=== PATIENT | female | born 1965 | race Asian ===

== ENCOUNTER 2020-03-28 22:39 | Inpatient (IN) | payer MEDICARE, MEDICAID ==
[~2020-03-28] VITALS: Ht 165.1 cm; Wt 60.6 kg
--- NOTE | 2020-03-28 22:49 | Emergency Room Report ---
History of Present Illness General Source: Patient, EMS Present Illness HPI Patient brought by EMS after she experiences left sided rib, chest pain associated with nausea. She denies any vomiting. Paramedics report she had a normal EKG in the field. She said the pain started this morning. It is severe indigestion. She was treated with Zofran. The patient stated that Zofran made her drowsy. Usually Gaviscon helps but it did not help this time. Her doctor told her that she was COVID-19 positive even though she tested 3 weeks ago negative. Since he takes Pepcid daily. She has been drinking a lot of fluids. This includes water. She has felt dizzy and unsteady on her feet. The left- sided chest pain is rated 7/10. She points to the lateral side of her chest wall. She states that somewhat positional and does not radiate. This started today. The patient takes anticonvulsants. These also make her drowsy. She does not remember the last time she had a seizure. No fevers, chills, sore throat, palpitations, diarrhea, dysuria, abdominal pain , shortness of breath, joint pain, rashes, visual changes, headache. Patient also suffers from schizophrenia. Allergies: Coded Allergies: PENICILLINS (Verified Allergy, Intermediate, 03/29/20) CHEST TIGHTNESS Patient History Past Medical History: see triage record, seizures Social History: Denies: smoking, alcohol use, drug use Social History Narrative drove herself here Reviewed Nursing Documentation: PMH: Agreed; PSxH: Agreed Review of Systems All Other Systems: negative except mentioned in HPI Physical Exam Vital Signs Date Time Temp Pulse Resp B/P (MAP) Pulse Ox O2 Delivery O2 Flow Rate FiO2 03/28/20 23:36 97.9 59 16 139/64 (89) 97 Room Air Sp02 EP Interpretation: reviewed, normal General Appearance: well appearing, no apparent distress, GCS 15 Head: normocephalic Eyes: bilateral eye normal inspection, bilateral eye PERRL, bilateral eye EOMI ENT: normal pharynx, moist mucus membranes Neck: supple Respiratory: lungs clear, normal breath sounds Cardiovascular #1: regular rate, rhythm Cardiovascular #2: 2+ radial (R) Gastrointestinal: normal inspection, normal bowel sounds, non tender, no mass, non-distended Musculoskeletal: back normal, normal range of motion, gait/station normal Neurologic: alert, motor strength/tone normal, 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 Differential includes acute myocardial infarction, costochondritis, viral syndrome, COVID-19 , gastritis, reflux amongst others. Patient evaluated with EKG, chest x-ray and labs. He did treat patient treated with IV hydration and Zofran along with another dose of Pepcid. EKG no injury, normal. Chest x-ray normal. Labs with low sodium. COVID-19 test negative. Patient refused Zofran as she states this makes her drowsy. Discussed results with patient and need for IV hydration. She is reluctant but finally agreed to continue therapy. The chest pain is improved. In addition the indigestion is somewhat improved but she still feels nauseated. As I told her she needed admission she agreed to take Zofran IV. Improved with IV hydration and zofran. Urine sodium is 24 which excludes excessive water intake. However, it does not give a definitive diagnosis. Observation indicated as patient with symptomatic hyponatremia and persistent nausea. Laboratory Tests Test 03/28/20 23:14 03/29/20 03:50 White Blood Count 4.3 K/UL (4.8-10.8) L Red Blood Count 3.88 M/UL (4.20-5.40) L Hemoglobin 12.1 G/DL (12.0-16.0) Hematocrit 34.2 % (37.0-47.0) L Mean Corpuscular Volume 88 FL (80-99) Mean Corpuscular Hemoglobin 31.3 PG (27.0-31.0) H Mean Corpuscular Hemoglobin Concent 35.5 G/DL (32.0-36.0) Red Cell Distribution Width 10.2 % (11.6-14.8) L Platelet Count 228 K/UL (150-450) Mean Platelet Volume 5.0 FL (6.5-10.1) L Neutrophils (%) (Auto) 51.6 % (45.0-75.0) Lymphocytes (%) (Auto) 35.9 % (20.0-45.0) Monocytes (%) (Auto) 6.8 % (1.0-10.0) Eosinophils (%) (Auto) 4.3 % (0.0-3.0) H Basophils (%) (Auto) 1.3 % (0.0-2.0) Activated Partial Thromboplast Time 30 SEC (23-33) Urine Color Colorless Urine Appearance Clear Urine pH 7 (4.5-8.0) Urine Specific [place] 1.010 (1.005-1.035) Urine Protein Negative (NEGATIVE) Urine Glucose (UA) Negative (NEGATIVE) Urine Ketones Negative (NEGATIVE) Urine Blood Negative (NEGATIVE) Urine Nitrite Negative (NEGATIVE) Urine Bilirubin Negative (NEGATIVE) Urine Urobilinogen Normal MG/DL (0.0-1.0) Urine Leukocyte Esterase Negative (NEGATIVE) Sodium Level 123 MMOL/L (136-145) L Potassium Level 4.1 MMOL/L (3.5-5.1) Chloride Level 87 MMOL/L (98-107) L Carbon Dioxide Level 31 MMOL/L (21-32) Anion Gap 5 mmol/L (5-15) Blood Urea Nitrogen 5 mg/dL (7-18) L Creatinine 0.7 MG/DL (0.55-1.30) Estimated Glomerular Filtration Rate > 60 mL/min (>60) Glucose Level 96 MG/DL (74-106) Calcium Level 9.0 MG/DL (8.5-10.1) Ferritin 52 NG/ML (8-388) Total Bilirubin 0.5 MG/DL (0.2-1.0) Aspartate Amino Transferase (AST) 23 U/L (15-37) Alanine Aminotransferase (ALT) 31 U/L (12-78) Alkaline Phosphatase 84 U/L (46-116) Lactate Dehydrogenase 200 U/L (81-234) Troponin I 0.000 ng/mL (0.000-0.056) C-Reactive Protein, Quantitative < 0.4 mg/dL (0.00-0.90) Pro-B-Type Natriuretic Peptide 13 pg/mL (0-125) Total Protein 8.0 G/DL (6.4-8.2) Albumin 4.5 G/DL (3.4-5.0) Globulin 3.5 g/dL Albumin/Globulin Ratio 1.3 (1.0-2.7) Urine Random Sodium 24 mmol/L (20-110) Microbiology Date/Time Source Procedure Growth Status 03/28/20 23:14 Nasopharynx SARS-CoV-2 RdRp Gene Assay - Final Complete EKG Diagnostic Results Rate: bradycardiac Rhythm: NSR ST Segments: no acute changes Rhythm Strip Diag. Results EP Interpretation: yes Rhythm: no PVC's, no ectopy, other - Heart rate 55 Chest X-Ray Diagnostic Results Chest X-Ray Diagnostic Results : Chest X-Ray Ordered: Yes # of Views/Limited/Complete: 1 View Indication: Other EP Interpretation: Yes Interpretation: no consolidation, no effusion, no pneumothorax Impression: No acute disease Electronically Signed by: Electronically signed by Jose Lopez MD Last Vital Signs Date Time Temp Pulse Resp B/P (MAP) Pulse Ox O2 Delivery O2 Flow Rate FiO2 03/29/20 04:37 97.9 60 19 118/68 100 Room Air Status: improved Disposition: PLACE IN OBSERVATION Condition: Serious Jose Lopez MD Mar 28, 2020 22:49
[2020-03-28] MEDS ORDERED: Lidocaine 2% Visc 15ml soln ORAL ONE (23:00)
[2020-03-28] MEDS ORDERED: Mylanta II UD 30ml ORAL ONE (23:00)
--- NOTE | 2020-03-28 23:14 | Diagnostic Imaging Report ---
EXAM: XR Chest, 1 View CLINICAL HISTORY: CP TECHNIQUE: Frontal view of the chest. COMPARISON: No relevant prior studies available. FINDINGS: Lungs: Unremarkable. No consolidation. Pleural space: No pleural effusion. No pneumothorax. Heart: Unremarkable. No cardiomegaly. Bones/joints: Unremarkable. IMPRESSION: No acute cardiopulmonary abnormality.
[2020-03-28 23:46] VITALS: BP 139/64
[2020-03-28 23:53] LABS: APPEARANCE,URINE CLEAR; BILIRUBIN, URINE NEGATIVE (NEGATIVE); GLUCOSE, URINE (UA) NEGATIVE (NEGATIVE); KETONES,URINE NEGATIVE (NEGATIVE); LEUKOCYTE ESTERASE ,URINE NEGATIVE (NEGATIVE); NITRITE,URINE NEGATIVE (NEGATIVE); PH,URINE 7 (4.5-8.0); PROTEIN,URINE NEGATIVE (NEGATIVE); UROBILINOGEN,URINE NORMAL MG/DL (0.0-1.0)
[2020-03-29 00:07] LABS: BASOPHILS % (AUTO) 1.3 % (0.0-2.0); EOSINOPHILS % (AUTO) 4.3 % (0.0-3.0); HEMATOCRIT 34.2 % (37.0-47.0); HEMOGLOBIN 12.1 G/DL (12.0-16.0); LYMPHOCYTES % (AUTO) 35.9 % (20.0-45.0); MEAN CORPUSCULAR VOLUME 88 FL (80-99); MONOCYTES % (AUTO) 6.8 % (1.0-10.0); NEUTROPHILS % (AUTO) 51.6 % (45.0-75.0); PLATELET COUNT 228 K/UL (150-450); RED BLOOD COUNT 3.88 M/UL (4.20-5.40); RED CELL DISTRIBUTION WIDTH 10.2 % (11.6-14.8); WHITE BLOOD COUNT 4.3 K/UL (4.8-10.8)
[2020-03-29 00:25] LABS: ANION GAP 5 mmol/L (5-15); BLOOD UREA NITROGEN 5 mg/dL (7-18); CARBON DIOXIDE 31 MMOL/L (21-32); CHLORIDE 87 MMOL/L (98-107); CREATININE 0.7 MG/DL (0.55-1.30); POTASSIUM 4.1 MMOL/L (3.5-5.1); SODIUM 123 MMOL/L (136-145)
[2020-03-29 00:36] LABS: ALANINE AMINOTRANSFERASE 31 U/L (12-78); ALBUMIN 4.5 G/DL (3.4-5.0); ALBUMIN/GLOBULIN RATIO 1.3 (1.0-2.7); ALKALINE PHOSPHATASE 84 U/L (46-116); ASPARTATE AMINO TRANSFERASE 23 U/L (15-37); BILIRUBIN,TOTAL 0.5 MG/DL (0.2-1.0)
[2020-03-29 00:46] LABS: FERRITIN 52 NG/ML (8-388); LACTATE DEHYDROGENASE 200 U/L (81-234)
[2020-03-29 02:23] LABS: COLOR,URINE COLORLESS
[2020-03-29 04:00] VITALS: BP 118/68
[2020-03-29] MEDS ORDERED: ONFI10 MG PO (04:22)
[2020-03-29] MEDS ORDERED: GAVISCON 80-141 EACH PO (04:22)
[2020-03-29] MEDS ORDERED: LAMICTAL200 MG ORAL (04:22)
[2020-03-29] MEDS ORDERED: XOPENEX HFA15 GM IH (04:22)
[2020-03-29] MEDS ORDERED: SAPHRIS5 MG SL (04:22)
[2020-03-29] MEDS ORDERED: BENZTROPINE ME0.5 MG ORAL (04:22)
[2020-03-29] MEDS ORDERED: TYLENOL EXTRA500 MG ORAL (04:22)
[2020-03-29] MEDS ORDERED: FAMOTIDINE20 MG ORAL (04:22)
[2020-03-29 05:00] VITALS: BP 128/70
[2020-03-29 08:00] VITALS: BP 112/62
--- NOTE | 2020-03-29 08:53 | Diagnostic Imaging Report ---
EXAM: US Duplex Bilateral Lower Extremities Veins CLINICAL HISTORY: DVT TECHNIQUE: Real-time duplex ultrasound scan of the bilateral lower extremity veins integrating B-mode two-dimensional vascular structure, Doppler spectral analysis, color flow Doppler imaging and compression. COMPARISON: No relevant prior studies available. FINDINGS: Right deep veins: Unremarkable. No DVT in the right common femoral, femoral, proximal deep femoral or popliteal veins. The veins demonstrate normal color flow, are normally compressible, with normal phasic flow and/or augmentation response. Right superficial veins: Unremarkable. No thrombus in the visualized right great saphenous vein. Left deep veins: Unremarkable. No DVT in the left common femoral, femoral, proximal deep femoral or popliteal veins. The veins demonstrate normal color flow, are normally compressible, with normal phasic flow and/or augmentation response. Left superficial veins: Unremarkable. No thrombus in the visualized left great saphenous vein. Soft tissues: No acute findings. No popliteal cyst. IMPRESSION: Normal bilateral lower extremity duplex venous ultrasound.
[2020-03-29] MEDS: Heparin 5000 units/ml inj SUBQ SCH ×3 (09:00→20:26)
--- NOTE | 2020-03-29 09:24 | History & Physical ---
History and Physical History & Physicial History and Physical HPI Patient with history of Psychiatric illness, Seizures,admitted with hyponatremia , left sided rib, chest pain associated with nausea. Also c/o indigestion. Apparently told she was COVID-19 positive, however ruled out by laboratory testing. Since he takes Pepcid daily. The patient takes anticonvulsants. 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 Impression: Hyponatremia Chest pain Psychiatric illness, Seizures, Dyspepsia Intractable nausea COVID-19 ruled out by laboratory testing Transient bradycardia Plan IV NS Monitor labs TSH Urine/SErum Osmalality, Urine sodium Renal Consultation Psychiatric Consultation Zofran PRN R/o DVT/PE Laboratory Tests Test 03/28/20 23:14 03/29/20 03:50 White Blood Count 4.3 K/UL (4.8-10.8) L Red Blood Count 3.88 M/UL (4.20-5.40) L Hemoglobin 12.1 G/DL (12.0-16.0) Hematocrit 34.2 % (37.0-47.0) L Mean Corpuscular Volume 88 FL (80-99) Mean Corpuscular Hemoglobin 31.3 PG (27.0-31.0) H Mean Corpuscular Hemoglobin Concent 35.5 G/DL (32.0-36.0) Red Cell Distribution Width 10.2 % (11.6-14.8) L Platelet Count 228 K/UL (150-450) Mean Platelet Volume 5.0 FL (6.5-10.1) L Neutrophils (%) (Auto) 51.6 % (45.0-75.0) Lymphocytes (%) (Auto) 35.9 % (20.0-45.0) Monocytes (%) (Auto) 6.8 % (1.0-10.0) Eosinophils (%) (Auto) 4.3 % (0.0-3.0) H Basophils (%) (Auto) 1.3 % (0.0-2.0) Activated Partial Thromboplast Time 30 SEC (23-33) Urine Color Colorless Urine Appearance Clear Urine pH 7 (4.5-8.0) Urine Specific [place] 1.010 (1.005-1.035) Urine Protein Negative (NEGATIVE) Urine Glucose (UA) Negative (NEGATIVE) Urine Ketones Negative (NEGATIVE) Urine Blood Negative (NEGATIVE) Urine Nitrite Negative (NEGATIVE) Urine Bilirubin Negative (NEGATIVE) Urine Urobilinogen Normal MG/DL (0.0-1.0) Urine Leukocyte Esterase Negative (NEGATIVE) Sodium Level 123 MMOL/L (136-145) L Potassium Level 4.1 MMOL/L (3.5-5.1) Chloride Level 87 MMOL/L (98-107) L Carbon Dioxide Level 31 MMOL/L (21-32) Anion Gap 5 mmol/L (5-15) Blood Urea Nitrogen 5 mg/dL (7-18) L Creatinine 0.7 MG/DL (0.55-1.30) Estimated Glomerular Filtration Rate > 60 mL/min (>60) Glucose Level 96 MG/DL (74-106) Calcium Level 9.0 MG/DL (8.5-10.1) Ferritin 52 NG/ML (8-388) Total Bilirubin 0.5 MG/DL (0.2-1.0) Aspartate Amino Transferase (AST) 23 U/L (15-37) Alanine Aminotransferase (ALT) 31 U/L (12-78) Alkaline Phosphatase 84 U/L (46-116) Lactate Dehydrogenase 200 U/L (81-234) Troponin I 0.000 ng/mL (0.000-0.056) C-Reactive Protein, Quantitative < 0.4 mg/dL (0.00-0.90) Pro-B-Type Natriuretic Peptide 13 pg/mL (0-125) Total Protein 8.0 G/DL (6.4-8.2) Albumin 4.5 G/DL (3.4-5.0) Globulin 3.5 g/dL Albumin/Globulin Ratio 1.3 (1.0-2.7) Urine Random Sodium 24 mmol/L (20-110) Microbiology Date/Time Source Procedure Growth Status 03/28/20 23:14 Nasopharynx SARS-CoV-2 RdRp Gene Assay - Final Complete EKG: Rate: bradycardiac Rhythm: NSR ST Segments: no acute changes Chest X-Ray: no consolidation, no effusion, no pneumothorax, No acute disease LE Dupplex: no DVT Jose De Oliveira MD Mar 29, 2020 09:24
[2020-03-29 12:00] VITALS: BP 119/71
[2020-03-29 12:53] LABS: ANION GAP 14 mmol/L (5-15); BLOOD UREA NITROGEN 2 mg/dL (7-18); CALCIUM 9.4 MG/DL (8.5-10.1); CARBON DIOXIDE 25 MMOL/L (21-32); CHLORIDE 103 MMOL/L (98-107); CREATININE 0.6 MG/DL (0.55-1.30); POTASSIUM 4.1 MMOL/L (3.5-5.1); SODIUM 142 MMOL/L (136-145)
--- NOTE | 2020-03-29 14:05 | Cardiac Electrophysiology PN ---
Subjective Subjective [id number] Objective Last 24 Hour Vital Signs Date Time Temp Pulse Resp B/P (MAP) Pulse Ox O2 Delivery O2 Flow Rate FiO2 03/29/20 08:00 97.2 74 18 112/62 (79) 98 03/29/20 07:30 72 03/29/20 05:00 97.1 70 16 128/70 (89) 99 03/29/20 04:57 Room Air 03/29/20 04:37 97.9 60 19 118/68 100 Room Air 03/29/20 04:00 97.9 60 19 118/68 100 Room Air 03/28/20 23:46 97.9 59 16 139/64 97 Room Air 03/28/20 23:46 59 16 Room Air 03/28/20 23:36 97.9 59 16 139/64 (89) 97 Room Air Intake and Output 03/28/20 03/29/20 19:00 07:00 Intake Total 540 ml Balance 540 ml Intake Oral 240 ml IV Total 300 ml Laboratory Tests Test 03/28/20 23:14 03/29/20 03:50 03/29/20 07:40 03/29/20 12:35 White Blood Count 4.3 K/UL (4.8-10.8) L Red Blood Count 3.88 M/UL (4.20-5.40) L Hemoglobin 12.1 G/DL (12.0-16.0) Hematocrit 34.2 % (37.0-47.0) L Mean Corpuscular Volume 88 FL (80-99) Mean Corpuscular Hemoglobin 31.3 PG (27.0-31.0) H Mean Corpuscular Hemoglobin Concent 35.5 G/DL (32.0-36.0) Red Cell Distribution Width 10.2 % (11.6-14.8) L Platelet Count 228 K/UL (150-450) Mean Platelet Volume 5.0 FL (6.5-10.1) L Neutrophils (%) (Auto) 51.6 % (45.0-75.0) Lymphocytes (%) (Auto) 35.9 % (20.0-45.0) Monocytes (%) (Auto) 6.8 % (1.0-10.0) Eosinophils (%) (Auto) 4.3 % (0.0-3.0) H Basophils (%) (Auto) 1.3 % (0.0-2.0) Activated Partial Thromboplast Time 30 SEC (23-33) Urine Color Colorless Urine Appearance Clear Urine pH 7 (4.5-8.0) Urine Specific [place] 1.010 (1.005-1.035) Urine Protein Negative (NEGATIVE) Urine Glucose (UA) Negative (NEGATIVE) Urine Ketones Negative (NEGATIVE) Urine Blood Negative (NEGATIVE) Urine Nitrite Negative (NEGATIVE) Urine Bilirubin Negative (NEGATIVE) Urine Urobilinogen Normal MG/DL (0.0-1.0) Urine Leukocyte Esterase Negative (NEGATIVE) Sodium Level 123 MMOL/L (136-145) L 142 MMOL/L (136-145) # Potassium Level 4.1 MMOL/L (3.5-5.1) 4.1 MMOL/L (3.5-5.1) Chloride Level 87 MMOL/L (98-107) L 103 MMOL/L (98-107) Carbon Dioxide Level 31 MMOL/L (21-32) 25 MMOL/L (21-32) Anion Gap 5 mmol/L (5-15) 14 mmol/L (5-15) Blood Urea Nitrogen 5 mg/dL (7-18) L 2 mg/dL (7-18) L Creatinine 0.7 MG/DL (0.55-1.30) 0.6 MG/DL (0.55-1.30) Estimat Glomerular Filtration Rate > 60 mL/min (>60) > 60 mL/min (>60) Glucose Level 96 MG/DL (74-106) 98 MG/DL (74-106) Calcium Level 9.0 MG/DL (8.5-10.1) 9.4 MG/DL (8.5-10.1) Ferritin 52 NG/ML (8-388) Total Bilirubin 0.5 MG/DL (0.2-1.0) Aspartate Amino Transf (AST/SGOT) 23 U/L (15-37) 25 U/L (15-37) Alanine Aminotransferase (ALT/SGPT) 31 U/L (12-78) 29 U/L (12-78) Alkaline Phosphatase 84 U/L (46-116) 81 U/L (46-116) Lactate Dehydrogenase 200 U/L (81-234) Troponin I 0.000 ng/mL (0.000-0.056) 0.000 ng/mL (0.000-0.056) C-Reactive Protein, Quantitative < 0.4 mg/dL (0.00-0.90) Pro-B-Type Natriuretic Peptide 13 pg/mL (0-125) Total Protein 8.0 G/DL (6.4-8.2) Albumin 4.5 G/DL (3.4-5.0) Globulin 3.5 g/dL Albumin/Globulin Ratio 1.3 (1.0-2.7) Urine Random Sodium 24 mmol/L (20-110) 43 mmol/L (20-110) Osmolality 292 mOsm/kg (297-317) L Uric Acid 2.8 MG/DL (2.6-7.2) Thyroid Stimulating Hormone (TSH) 1.799 uiU/mL (0.358-3.740) Urine Osmolality 135 mOsm/kg (429-449) L Microbiology Date/Time Source Procedure Growth Status 03/28/20 23:14 Nasopharynx SARS-CoV-2 RdRp Gene Assay - Final Complete Renard Cooley MD Mar 29, 2020 14:05
[2020-03-29] MEDS ORDERED: Lexiscan 0.4mg/5ml syringe IV PRN (14:15)
[2020-03-29 16:00] VITALS: BP 110/62
--- NOTE | 2020-03-29 17:00 | Consultation ---
DATE OF CONSULTATION: 03/29/2020 REFERRING PHYSICIAN: Rajeev Joy M.D. REASON FOR CONSULTATION: Hyponatremia. HISTORY OF PRESENT ILLNESS: The patient is a 54-year-old female with underlying psychiatric history and seizures, admitted with further evaluation of hyponatremia, left-sided chest pain, and some nausea. The patient had been told to drink a lot a water, because she might have the coronavirus. However, she has never been tested. She takes Pepcid daily along with Lamictal. ALLERGIES: Penicillin. PAST MEDICAL HISTORY: 1. Psychiatric illness. 2. Seizure. 3. Dyspepsia. FAMILY HISTORY: Noncontributory. SOCIAL HISTORY: No tobacco, alcohol, or illicit drug use. PAST SURGICAL HISTORY: Deferred. REVIEW OF SYSTEMS: NEUROLOGIC: The patient denies headache, change in vision, syncope, or presyncopal episodes. CARDIOVASCULAR: No current chest pain, palpitations, or angina. PULMONARY: No difficulty breathing, productive cough, or sputum. GASTROINTESTINAL/GENITOURINARY: No change in urinary or bowel habits. No nausea, vomiting, or diarrhea. ENDOCRINOLOGY: No night sweats, fevers, or chills. MUSCULOSKELETAL: The patient is feeling weak, tired, and fatigued. LABORATORY DATA: Labs dated March 28, 2020, sodium 123, calcium 9, creatinine 0.7, serum osmolality 292. TSH 1.8. White cell count 4.3, hemoglobin 12.1, and platelet count 228. PHYSICAL EXAMINATION: VITAL SIGNS: Blood pressure 112/62, pulse ox 98, respiratory rate 18, pulse 74, temperature 97.2. GENERAL: The patient is awake, alert, not in distress. HEENT: Extraocular muscles intact. No lymphadenopathy noted. CARDIOVASCULAR: S1, S2. No rubs or gallops. PULMONARY: Clear to auscultation bilaterally. No rales, rhonchi, or wheezes. ABDOMEN: Nondistended and nontender. EXTREMITIES: No edema noted. ASSESSMENT AND PLAN: 1. Hyponatremia at this time could be secondary to polydipsia as the patient was drinking large volumes of fluid as she was told this would cure the coronavirus. At this time, we will check a urine osmolality and place her on p.o. fluid restriction with a repeat sodium level. 2. Psychiatric illness. Defer to . Alexei Vick MD DR: RADHA JOB#: [id number] CC:
[2020-03-29 20:00] VITALS: BP 133/80
[2020-03-29] MEDS: LAMICTAL 200 MG ORAL SCH (20:26)
[2020-03-29] MEDS: ONFI 10 MG ORAL SCH (20:26)
--- NOTE | 2020-03-29 20:44 | Consultation ---
DATE OF CONSULTATION: 03/29/2020 CARDIOLOGY CONSULTATION CONSULTING PHYSICIAN: Renard Cooley MD REFERRING PHYSICIAN: Rajeev Joy MD ADDITIONAL REFERRING PHYSICIAN: Dr. De Oliveira. REASON FOR CONSULTATION: Chest pain and hypertension. HISTORY OF PRESENT ILLNESS: The patient is a very pleasant 54-year-old lady with history of seizures, who came to the emergency room complaining of left-sided chest and rib pain associated with nausea. Paramedics did an EKG, which was reportedly normal in the field. The patient was also noted to have hypertension with blood pressure of 160s, even though she has blood pressure usually in the 120s or 130s. She stated that her doctor told her she was COVID-19 positive even though she tested negative 3 weeks ago. REVIEW OF SYSTEMS: Negative other than what was mentioned in the history of present illness. PAST MEDICAL HISTORY: As mentioned above. FAMILY HISTORY: Noncontributory. SOCIAL HISTORY: She does not smoke or drink alcohol. PHYSICAL EXAMINATION: VITAL SIGNS: Show blood pressure of 112/62, pulse is 74, respirations 18, and she is afebrile. HEAD AND NECK: Showed no JVD. LUNGS: Clear. CARDIOVASCULAR: Shows regular S1 and S2 with no gallop or murmur. ABDOMEN: Soft. EXTREMITIES: No pitting edema. LABORATORY DATA: Labs show sodium 122, potassium 4.0, BUN of 5, creatinine of 0.7, glucose of 96. Troponin is negative x2. White count is , hemoglobin of 12.1, hematocrit 34, platelet count of 228,000. ASSESSMENT AND PLAN: 1. Chest pain. The pain is atypical. The patient already ruled out for myocardial infarction by serial cardiac enzymes. Her EKG showed sinus bradycardia and rate of 55, but no acute ST-T wave abnormalities. We will get an echocardiogram and schedule the patient for stress test. 2. Bradycardia. It was transient, currently off any AV-errol beulah. Heart rate is improved already. 3. Hyponatremia. Sodium 120s that has improved. 4. History of seizures, on Keppra. 5. Transient hypertension. Blood pressure is currently stable, likely due to stress. Thank you very much for allowing me to participate in the care of this patient. Please do not hesitate to contact me for any questions regarding my evaluation. Renard Cooley M.D. DR: Anjali JOB#: [id number] CC:
[2020-03-29] MEDS ORDERED: Benztropine 1mg tab ORAL ONE (21:00)
[2020-03-29] MEDS ORDERED: Benztropine 1mg tab ORAL SCH (21:00)
[2020-03-29] MEDS ORDERED: Milk of Magnesia 30ml Ud ORAL PRN (21:30)
--- NOTE | 2020-03-29 22:41 | Initial Psychiatric Evaluation ---
Psychiatry Consultation Psychiatry Consultation Chief Complaint: Chest Pain Allergies: Coded Allergies: PENICILLINS (Verified Allergy, Intermediate, 03/29/20) CHEST TIGHTNESS Medication History Scheduled Benztropine Mesylate* (Cogentin*), 1 MG ORAL BID, (Reported) Clobazam (Onfi), 10 MG PO TID, (Reported) Famotidine* (Pepcid 20mg tablet*), 40 MG ORAL TWICE A DAY, (Reported) Lamotrigine (Lamictal), 200 MG ORAL QID, (Reported) Scheduled PRN Acetaminophen* (Tylenol Extra Strength*), 500 MG ORAL Q6H PRN for Mild Pain/ Temp > 100.5, (Reported) Miscellaneous Medications Asenapine Maleate (Saphris), 2.5 MG SL, (Reported) Levalbuterol Tartrate (Xopenex Hfa), 45 MCG IH, (Reported) Mg Trisilicate/Alh/Nahco3/Aa (Gaviscon 80-14.2 Mg Tab Chew), 1 EACH PO, ( Reported) Patient History History Provided By: Patient, Medical Record, PMD Objective Data Height (Feet): 5 Height (Inches): 5.00 Weight (Pounds): 144 Assessment/Plan Diagnosis [place] I: ASSESSMENT: [place] I PTSD. Anxiety disorder. [place] II Deferred. [place] III Seizure. [place] IV Low. [place] V 50. PLAN: 1. Remeron at nighttime. 2. Decrease antipsychotics. 3. Decrease Cogentin. 4. Explained to her that anticholinergic medication will make her more constipated. 5. Discontinue the antipsychotics. 6. Provided the patient with reality orientation and supportive therapy. Yecenia Miranda MD Mar 29, 2020 22:41
[2020-03-29] MEDS ORDERED: LORazepam 1mg tab ORAL PRN (22:45)
[2020-03-30] VITALS: BP 128/83
[2020-03-30] MEDS ORDERED: Miralax 17gm pkt ORAL ONE (00:15)
[2020-03-30 03:51] VITALS: BP 100/59
[2020-03-30 08:00] VITALS: BP 111/63
[2020-03-30] MEDS: Heparin 5000 units/ml inj SUBQ SCH ×2 (08:33→21:00)
[2020-03-30] MEDS: LAMICTAL 200 MG ORAL SCH ×2 (08:43→18:28)
[2020-03-30 09:31] LABS: BASOPHILS % (AUTO) 1.2 % (0.0-2.0); EOSINOPHILS % (AUTO) 4.8 % (0.0-3.0); HEMATOCRIT 36.2 % (37.0-47.0); HEMOGLOBIN 12.4 G/DL (12.0-16.0); LYMPHOCYTES % (AUTO) 37.4 % (20.0-45.0); MEAN CORPUSCULAR VOLUME 91 FL (80-99); MONOCYTES % (AUTO) 7.1 % (1.0-10.0); NEUTROPHILS % (AUTO) 49.5 % (45.0-75.0); PLATELET COUNT 224 K/UL (150-450); RED BLOOD COUNT 3.98 M/UL (4.20-5.40); RED CELL DISTRIBUTION WIDTH 10.8 % (11.6-14.8); WHITE BLOOD COUNT 3.6 K/UL (4.8-10.8)
[2020-03-30 10:06] LABS: ANION GAP 9 mmol/L (5-15); BLOOD UREA NITROGEN 4 mg/dL (7-18); CALCIUM 9.4 MG/DL (8.5-10.1); CARBON DIOXIDE 28 MMOL/L (21-32); CHLORIDE 103 MMOL/L (98-107); CREATININE 0.6 MG/DL (0.55-1.30); POTASSIUM 3.9 MMOL/L (3.5-5.1); SODIUM 140 MMOL/L (136-145)
--- NOTE | 2020-03-30 11:57 | Pulmonology Progress Note ---
Subjective ROS Limited/Unobtainable: No Allergies: Coded Allergies: PENICILLINS (Verified Allergy, Intermediate, 03/29/20) CHEST TIGHTNESS Objective Last 24 Hour Vital Signs Date Time Temp Pulse Resp B/P (MAP) Pulse Ox O2 Delivery O2 Flow Rate FiO2 03/30/20 09:19 Room Air 03/30/20 08:00 60 03/30/20 08:00 98.0 73 18 111/63 (79) 98 03/30/20 04:00 55 03/30/20 03:51 98.2 62 18 100/59 (73) 97 03/30/20 00:00 63 03/30/20 00:00 98.9 63 18 128/83 (98) 97 03/29/20 21:00 Room Air 03/29/20 20:00 97.9 67 18 133/80 (97) 97 03/29/20 20:00 64 03/29/20 16:01 64 03/29/20 16:00 97.7 78 18 110/62 (78) 98 03/29/20 12:00 97.5 61 20 119/71 (87) 99 03/29/20 12:00 73 Intake and Output 03/29/20 03/30/20 19:00 07:00 Intake Total 360 ml Balance 360 ml Intake Oral 360 ml # Voids 3 1 Microbiology Date/Time Source Procedure Growth Status 03/28/20 23:14 Nasopharynx SARS-CoV-2 RdRp Gene Assay - Final Complete Laboratory Tests 03/29/20 12:35: Urine Osmolality 135L, Urine Random Sodium 43 03/30/20 06:50: White Blood Count 3.6L, Red Blood Count 3.98L, Hemoglobin 12.4, Hematocrit 36.2L , Mean Corpuscular Volume 91, Mean Corpuscular Hemoglobin 31.1H, Mean Corpuscular Hemoglobin Concent 34.3, Red Cell Distribution Width 10.8L, Platelet Count 224, Mean Platelet Volume 5.0L, Neutrophils (%) (Auto) 49.5, Lymphocytes (%) (Auto) 37.4, Monocytes (%) (Auto) 7.1, Eosinophils (%) (Auto) 4.8H, Basophils (%) (Auto) 1.2, Sodium Level 140, Potassium Level 3.9, Chloride Level 103, Carbon Dioxide Level 28, Anion Gap 9, Blood Urea Nitrogen 4L, Creatinine 0.6, Estimat Glomerular Filtration Rate > 60, Glucose Level 85, Calcium Level 9.4 Current Medications Medications (Trade) Dose Ordered Sig/Malini Route PRN Reason Start Time Stop Time Status Last Admin Dose Admin Acetaminophen (Tylenol) 650 mg Q6H PRN ORAL Mild Pain (Pain Scale 1-3) 03/29/20 05:15 04/28/20 05:14 Al Hydroxide/Mg Hydroxide (Mylanta) 30 ml Q6H PRN ORAL acid reflex 03/29/20 15:00 04/28/20 14:59 03/29/20 15:11 Dextrose 1,000 ml @ 75 mls/hr [id number] IV 03/29/20 16:15 04/28/20 16:14 Famotidine (Pepcid) 40 mg BID ORAL 03/29/20 21:30 06/27/20 21:29 03/30/20 08:32 Heparin Sodium (Porcine) (Heparin 5000 units/ml) 5,000 units EVERY 12 HOURS SUBQ 03/29/20 09:00 05/13/20 08:59 Lorazepam (Ativan) 1 mg Q6H PRN ORAL For Anxiety 03/29/20 22:45 04/05/20 22:44 Magnesium Hydroxide (Mom) 30 ml DAILYPRN PRN ORAL Constipation 03/29/20 21:30 04/28/20 21:29 03/30/20 09:41 Ondansetron HCl (Zofran) 4 mg Q6H PRN IVP Nausea & Vomiting 03/29/20 05:15 04/28/20 05:14 Patient Own Medication (Patient's Own Med) 2 ea BID ORAL 03/29/20 21:00 04/28/20 20:59 03/30/20 08:43 Patient Own Medication (Patient's Own Med) 3 ea QHS ORAL 03/29/20 21:00 04/28/20 20:59 03/29/20 20:26 Polyethylene Glycol (Miralax) 17 gm BEDTIME ORAL 03/30/20 21:00 04/29/20 20:59 Regadenoson (Lexiscan) 0.4 mg ONCE PRN IV diagnostic exam 03/29/20 14:15 03/31/20 14:14 Assessment/Plan Assessment/Plan Progress Note HPI Patient with history of Psychiatric illness, Seizures,admitted with hyponatremia , left sided rib, chest pain associated with nausea. Also c/o indigestion. Apparently told she was COVID-19 positive, however ruled out by laboratory testing. Since he takes Pepcid daily. The patient takes anticonvulsants. 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
[2020-03-30 12:05] VITALS: BP 114/84
[2020-03-30] MEDS: Albuterol/Ipratropium 3ml neb HHN SCH ×2 (12:18→19:00)
[2020-03-30] MEDS: Levalbuterol Inh UD 1.25mg/0.5ml HHN SCH ×2 (12:53→19:22)
[2020-03-30] MEDS ORDERED: Albuterol/Ipratropium 3ml neb HHN SCH (13:00)
--- NOTE | 2020-03-30 13:18 | Nephrology Progress Note ---
Assessment/Plan Assessment/Plan: A/P 1) Hyponatremia- resolved, Na 140 - due to polydypsia in PSY patient - PO fluid restrict 1-1.5 L day 2) ACS- work up underway per cardiology 3) PSY Condition managed by psychiatry Subjective Date patient seen: Mar 30, 2020 Time patient seen: 13:14 ROS Limited/Unobtainable: No Allergies: Coded Allergies: PENICILLINS (Verified Allergy, Intermediate, 03/29/20) CHEST TIGHTNESS Subjective Patient feeling better, ambulating in room Objective Last 24 Hour Vital Signs Date Time Temp Pulse Resp B/P (MAP) Pulse Ox O2 Delivery O2 Flow Rate FiO2 03/30/20 12:18 95 16 98 Room Air 21 91 18 96 03/30/20 12:05 97.5 76 20 114/84 (94) 99 03/30/20 12:00 68 03/30/20 09:19 Room Air 03/30/20 08:00 60 03/30/20 08:00 98.0 73 18 111/63 (79) 98 03/30/20 04:00 55 03/30/20 03:51 98.2 62 18 100/59 (73) 97 03/30/20 00:00 63 03/30/20 00:00 98.9 63 18 128/83 (98) 97 03/29/20 21:00 Room Air 03/29/20 20:00 97.9 67 18 133/80 (97) 97 03/29/20 20:00 64 03/29/20 16:01 64 03/29/20 16:00 97.7 78 18 110/62 (78) 98 Intake and Output 03/29/20 03/30/20 19:00 07:00 Intake Total 360 ml Balance 360 ml Intake Oral 360 ml # Voids 3 1 Laboratory Tests 03/30/20 06:50: White Blood Count 3.6L, Red Blood Count 3.98L, Hemoglobin 12.4, Hematocrit 36.2L , Mean Corpuscular Volume 91, Mean Corpuscular Hemoglobin 31.1H, Mean Corpuscular Hemoglobin Concent 34.3, Red Cell Distribution Width 10.8L, Platelet Count 224, Mean Platelet Volume 5.0L, Neutrophils (%) (Auto) 49.5, Lymphocytes (%) (Auto) 37.4, Monocytes (%) (Auto) 7.1, Eosinophils (%) (Auto) 4.8H, Basophils (%) (Auto) 1.2, Sodium Level 140, Potassium Level 3.9, Chloride Level 103, Carbon Dioxide Level 28, Anion Gap 9, Blood Urea Nitrogen 4L, Creatinine 0.6, Estimat Glomerular Filtration Rate > 60, Glucose Level 85, Calcium Level 9.4 Height (Feet): 5 Height (Inches): 5.00 Weight (Pounds): 144 General Appearance: no apparent distress, alert EENT: normal ENT inspection Neck: normal alignment, supple Cardiovascular: normal rate, regular rhythm Respiratory/Chest: lungs clear, normal breath sounds Abdomen: non tender, soft Edema: no edema noted Arm (L), no edema noted Arm (R), no edema noted Leg (L), no edema noted Leg (R), no edema noted Pedal (L), no edema noted Pedal (R), no edema noted Generalized Alexei Vick MD Mar 30, 2020 13:18
[2020-03-30 15:52] VITALS: BP 119/79
[2020-03-30 20:00] VITALS: BP 150/98
[2020-03-30] MEDS ORDERED: Miralax 17gm pkt ORAL SCH (21:00)
[2020-03-30] MEDS: ONFI 10 MG ORAL SCH (21:01)
[2020-03-31] VITALS: BP 134/76
[2020-03-31] MEDS ORDERED: Benztropine 1mg tab ORAL SCH
[2020-03-31] MEDS: Levalbuterol Inh UD 1.25mg/0.5ml HHN SCH ×2 (01:00→07:29)
[2020-03-31] MEDS: Albuterol/Ipratropium 3ml neb HHN SCH ×2 (01:00→07:29)
--- NOTE | 2020-03-31 01:44 | Consultation ---
DATE OF CONSULTATION: 03/30/2020 CONSULTING PHYSICIAN: Yecenia Miranda MD HISTORY OF PRESENT ILLNESS: Patient is a 54-year-old female with a history of PTSD, anxiety, depression who has been admitted to the hospital for hyponatremia. Patient also has a history of seizure and she is very anxious. She has poor insight into her anxiety, pacing around the room. She is worried about her medication and . PAST PSYCHIATRIC HISTORY: Anxiety, PTSD. Patient is on antipsychotics for anxiety. She is reluctant to change medication. PAST MEDICAL HISTORY: Seizure disorder, hyponatremia. ALLERGIES: Penicillin. SUBSTANCE ABUSE HISTORY: No known history of illicit drug use or alcohol. MENTAL STATUS EXAMINATION: Patient is alert, oriented times self, place, situation. Mood is anxious. Affect is blunted, congruent with mood. Thought process, circumstantial. Thought content, no suicidal or homicidal ideation. Cognition is intact. Insight and judgment is limited. ASSESSMENT: Bushnell I PTSD. Anxiety disorder. Bushnell II Deferred. Bushnell III Seizure. Bushnell IV Low. Bushnell V 50. PLAN: 1. Recommend SSRIs and Remeron at nighttime. 2. Decrease antipsychotics. 3. Decrease Cogentin. 4. Explained to her that anticholinergic medication will make her more constipated. 5. Discontinue the antipsychotics. 6. Provided the patient with reality orientation and supportive therapy. Yecenia Miranda M.D. DR: CHRISTINA JOB#: [id number] CC:
[2020-03-31 04:00] VITALS: BP 125/81
[2020-03-31 07:32] LABS: BASOPHILS % (AUTO) 1.2 % (0.0-2.0); EOSINOPHILS % (AUTO) 4.5 % (0.0-3.0); HEMATOCRIT 37.8 % (37.0-47.0); LYMPHOCYTES % (AUTO) 40.2 % (20.0-45.0); MEAN CORPUSCULAR VOLUME 91 FL (80-99); MONOCYTES % (AUTO) 7.3 % (1.0-10.0); NEUTROPHILS % (AUTO) 46.9 % (45.0-75.0); PLATELET COUNT 228 K/UL (150-450); RED BLOOD COUNT 4.17 M/UL (4.20-5.40); RED CELL DISTRIBUTION WIDTH 10.7 % (11.6-14.8)
[2020-03-31 07:56] LABS: ANION GAP 9 mmol/L (5-15); BLOOD UREA NITROGEN 4 mg/dL (7-18); CARBON DIOXIDE 29 MMOL/L (21-32); CHLORIDE 101 MMOL/L (98-107); CREATININE 0.7 MG/DL (0.55-1.30); POTASSIUM 3.8 MMOL/L (3.5-5.1); SODIUM 139 MMOL/L (136-145)
[2020-03-31 08:00] VITALS: BP 115/72
[2020-03-31] MEDS: LAMICTAL 200 MG ORAL SCH (08:30)
[2020-03-31] MEDS: Heparin 5000 units/ml inj SUBQ SCH (08:30)
--- NOTE | 2020-03-31 12:01 | Cardiac Electrophysiology PN ---
Assessment/Plan Assessment/Plan 1. Atypical Chest pain. The patient already ruled out for myocardial infarction by serial cardiac enzymes. Her EKG showed sinus bradycardia and rate of 55, but no acute ST-T wave abnormalities. Echocardiogram showed EF 60%. Sscheduled the patient for stress test but she is refusing and signing outy AMA. 2. Bradycardia. It was transient, currently off any AV-errol beulah. Heart rate is improved already. 3. Hyponatremia. Sodium 120s that has improved. 4. History of seizures, on Keppra. 5. Transient hypertension. Blood pressure is currently stable, likely due to stress. TONY RN Subjective Subjective Scheduled for stress test tomorrow but she is refusing and wants to leave AMA Objective Last 24 Hour Vital Signs Date Time Temp Pulse Resp B/P (MAP) Pulse Ox O2 Delivery O2 Flow Rate FiO2 03/31/20 08:00 98.1 104 21 115/72 (86) 99 03/31/20 07:39 84 18 100 Room Air 21 85 18 98 03/31/20 04:00 97.5 79 18 125/81 (96) 95 03/31/20 04:00 63 03/31/20 00:00 97.1 75 18 134/76 (95) 97 03/31/20 00:00 63 03/30/20 21:56 Room Air 03/30/20 20:00 94 03/30/20 20:00 96.8 85 18 150/98 (115) 98 03/30/20 19:43 80 18 98 Room Air 21 03/30/20 19:23 84 18 100 Room Air 21 80 18 98 03/30/20 15:52 97.9 69 18 119/79 (92) 98 03/30/20 12:18 95 16 98 Room Air 21 91 18 96 03/30/20 12:05 97.5 76 20 114/84 (94) 99 03/30/20 12:00 68 Intake and Output 03/30/20 03/31/20 19:00 07:00 Intake Total 760 ml 840 ml Balance 760 ml 840 ml Intake Oral 360 ml 840 ml IV Total 400 ml # Voids 3 3 Laboratory Tests Test 03/31/20 05:46 White Blood Count 4.0 K/UL (4.8-10.8) L Red Blood Count 4.17 M/UL (4.20-5.40) L Hemoglobin 13.0 G/DL (12.0-16.0) Hematocrit 37.8 % (37.0-47.0) Mean Corpuscular Volume 91 FL (80-99) Mean Corpuscular Hemoglobin 31.2 PG (27.0-31.0) H Mean Corpuscular Hemoglobin Concent 34.4 G/DL (32.0-36.0) Red Cell Distribution Width 10.7 % (11.6-14.8) L Platelet Count 228 K/UL (150-450) Mean Platelet Volume 4.9 FL (6.5-10.1) L Neutrophils (%) (Auto) 46.9 % (45.0-75.0) Lymphocytes (%) (Auto) 40.2 % (20.0-45.0) Monocytes (%) (Auto) 7.3 % (1.0-10.0) Eosinophils (%) (Auto) 4.5 % (0.0-3.0) H Basophils (%) (Auto) 1.2 % (0.0-2.0) Sodium Level 139 MMOL/L (136-145) Potassium Level 3.8 MMOL/L (3.5-5.1) Chloride Level 101 MMOL/L (98-107) Carbon Dioxide Level 29 MMOL/L (21-32) Anion Gap 9 mmol/L (5-15) Blood Urea Nitrogen 4 mg/dL (7-18) L Creatinine 0.7 MG/DL (0.55-1.30) Estimat Glomerular Filtration Rate > 60 mL/min (>60) Glucose Level 96 MG/DL (74-106) Calcium Level 10.0 MG/DL (8.5-10.1) Microbiology Date/Time Source Procedure Growth Status 03/28/20 23:14 Nasopharynx SARS-CoV-2 RdRp Gene Assay - Final Complete Objective HEAD AND NECK: No JVD. LUNGS: Clear. CARDIOVASCULAR: Shows regular S1 and S2 with no gallop or murmur. ABDOMEN: Soft. EXTREMITIES: No pitting edema. Renard Cooley MD Mar 31, 2020 12:00
--- NOTE | 2020-03-31 13:31 | Pulmonology Progress Note ---
Subjective ROS Limited/Unobtainable: No Allergies: Coded Allergies: PENICILLINS (Verified Allergy, Intermediate, 03/29/20) CHEST TIGHTNESS Objective Last 24 Hour Vital Signs Date Time Temp Pulse Resp B/P (MAP) Pulse Ox O2 Delivery O2 Flow Rate FiO2 03/31/20 08:00 98.1 104 21 115/72 (86) 99 03/31/20 07:39 84 18 100 Room Air 21 85 18 98 03/31/20 04:00 97.5 79 18 125/81 (96) 95 03/31/20 04:00 63 03/31/20 00:00 97.1 75 18 134/76 (95) 97 03/31/20 00:00 63 03/30/20 21:56 Room Air 03/30/20 20:00 94 03/30/20 20:00 96.8 85 18 150/98 (115) 98 03/30/20 19:43 80 18 98 Room Air 21 03/30/20 19:23 84 18 100 Room Air 21 80 18 98 03/30/20 15:52 97.9 69 18 119/79 (92) 98 Intake and Output 03/30/20 03/31/20 19:00 07:00 Intake Total 760 ml 840 ml Balance 760 ml 840 ml Intake Oral 360 ml 840 ml IV Total 400 ml # Voids 3 3 Microbiology Date/Time Source Procedure Growth Status 03/28/20 23:14 Nasopharynx SARS-CoV-2 RdRp Gene Assay - Final Complete Laboratory Tests 03/31/20 05:46: White Blood Count 4.0L, Red Blood Count 4.17L, Hemoglobin 13.0, Hematocrit 37.8 , Mean Corpuscular Volume 91, Mean Corpuscular Hemoglobin 31.2H, Mean Corpuscular Hemoglobin Concent 34.4, Red Cell Distribution Width 10.7L, Platelet Count 228, Mean Platelet Volume 4.9L, Neutrophils (%) (Auto) 46.9, Lymphocytes (%) (Auto) 40.2, Monocytes (%) (Auto) 7.3, Eosinophils (%) (Auto) 4.5H, Basophils (%) (Auto) 1.2, Sodium Level 139, Potassium Level 3.8, Chloride Level 101, Carbon Dioxide Level 29, Anion Gap 9, Blood Urea Nitrogen 4L, Creatinine 0.7, Estimat Glomerular Filtration Rate > 60, Glucose Level 96, Calcium Level 10.0 Assessment/Plan Assessment/Plan Progress Note HPI Patient with history of Psychiatric illness, Seizures,admitted with hyponatremia , left sided rib, chest pain associated with nausea. Also c/o indigestion. Apparently told she was COVID-19 positive, however ruled out by laboratory testing. Since he takes Pepcid daily. The patient takes anticonvulsants. 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
--- NOTE | 2020-03-31 22:36 | Psych Consult Progress Note ---
Psychiatry Progress Note Psychiatry Progress Note Neurological/Psychiatric: Reports: anxiety, depressed, emotional problems Allergies: Coded Allergies: PENICILLINS (Verified Allergy, Intermediate, 03/29/20) CHEST TIGHTNESS Objective Data Height (Feet): 5 Height (Inches): 5.00 Weight (Pounds): 144 General Appearance: no apparent distress, alert Additional Comments: alert, oriented times self, place, situation. Mood is anxious. Affect is blunted, congruent with mood. Thought process, circumstantial. Thought content, no suicidal or homicidal ideation. Cognition is intact. Insight and judgment is limited. Assessment/Plan Status: stable Assessment/Plan: ASSESSMENT: Ferney I PTSD. Anxiety disorder. Ferney II Deferred. Ferney III Seizure. Ferney IV Low. Ferney V 50. PLAN: 1. Recommend SSRIs and Remeron at nighttime. 2. Decrease antipsychotics. 3. Decrease Cogentin. 4. Explained to her that anticholinergic medication will make her more constipated. 5. Discontinue the antipsychotics. 6. Provided the patient with reality orientation and supportive therapy. Yecenia Miranda MD Mar 31, 2020 22:36
--- NOTE | 2020-04-02 01:56 | Cardiology Report ---
APPROVED REPORT EXAM: Two-dimensional and M-mode echocardiogram with Doppler and color Doppler. M-Mode DIMENSIONS IVSd0.8 (0.7-1.1cm)Left Atrium (MM)2.5 (1.6-4.0cm) LVDd4.0 (3.5-5.6cm)Aortic Root2.4 (2.0-3.7cm) PWd0.9 (0.7-1.1cm)Aortic Cusp Exc.2.3 (1.5-2.0cm) IVSs1.2 cmEPSS0.5 (>1.0cm) LVDs2.5 (2.5-4.0cm) PWs1.5 cm <Conclusion> Normal left ventricular chamber size, systolic function and wall motion. Left ventricular ejection fraction estimated to be 65-70%. No evidence of left ventricular hypertrophy. No evidence of pericardial effusion. All other cardiac chamber sizes are within normal limits. Pulmonic valve not well visualized. Normal tricuspid valve structure. IVC at normal size with physiological collapsing. A color flow and spectral Doppler study was performed and revealed: Trace aortic regurgitation. Mild mitral regurgitation. Mitral inflow indicate normal left ventricular diastolic function. Trace tricuspid regurgitation. Tricuspid systolic velocities suggests peak right ventricular systolic pressure of 17mmHg likely an underestimation
--- NOTE | 2020-04-02 01:57 | Cardiology Report ---
APPROVED REPORT EKG Measurement Heart [id number] <Conclusion> Sinus bradycardia Otherwise normal ECG
== END 2020-03-31 11:30 | disposition left against medical advice (07) | DRG 641 ==
LOC: EDBD 22:39 → EMR 23:34 → EDBEDREQ 03-29 01:15 → 2E 03-29 01:26 → OBSVTOIN 03-29 01:26 → EDBEDREQ 03-29 02:59
DX: E87.1 Hypo-osmolality and hyponatremia (principal); R07.89 Other chest pain; R63.1 Polydipsia; F43.10 Post-traumatic stress disorder, unspecified; F41.9 Anxiety disorder, unspecified; R00.1 Bradycardia, unspecified; Z88.0 Allergy status to penicillin
CPT/HCPCS: 36415; 71045; 80048; 80053; 81003; 82728; 83615; 83880; 83930; 83935; 84075; 84300; 84443; 84450; 84460; 84484; 84550; 85025; 85730; 86140; 93005; 93306; 93970; 94640; 94664; 96360; 96361; 96374; 96375; 99285; J2405; J7030; J7620; U0002